=== PATIENT | female | born 1995 | race Caucasian/White ===

== ENCOUNTER 2020-11-10 21:33 | Emergency (ER) | payer OTHER ==
[~2020-11-10] VITALS: Ht 165.1 cm; Wt 59.0 kg
[2020-11-10 21:36] VITALS: BP 147/69
[2020-11-10] MEDS ORDERED: EPIPEN0.3 MG/0.1 IM (22:40)
== END 2020-11-10 22:50 | disposition home or self-care (01) ==
LOC: ER 21:33
DX: L50.9 Urticaria, unspecified (principal)